=== PATIENT | female | born 1950 | race Caucasian/White ===

== ENCOUNTER 2021-06-01 08:35 | Day surgery (SDC) | payer MEDICARE, MEDICAID ==
[~2021-06-01] VITALS: Ht 165.1 cm; Wt 86.9 kg
[2021-06-01 08:52] VITALS: BP 143/100
[2021-06-01] MEDS ORDERED: cefazolin/dext.iso 2gm/50ml 50 ML IV ONE (09:10)
[2021-06-01] MEDS ORDERED: normal saline 1000ml 1,000 ML IV PRN (09:10)
[2021-06-01 09:30] LABS: BASOPHILS % (AUTO) 0.7 % (0-1); EOSINOPHILS # (AUTO) 0.1 X10'3 (0-0.9); EOSINOPHILS % (AUTO) 2.4 % (0-6); HEMATOCRIT 35.1 % (35.0-45.0); HEMOGLOBIN 11.8 g/dl (12.0-16.0); LYMPHOCYTES # (AUTO) 1.8 X10'3 (1.1-4.8); LYMPHOCYTES % (AUTO) 30.2 % (21-51); MEAN CORPUSCULAR HEMOGLOBIN 33.4 PG (27.0-31.0); MEAN CORPUSCULAR HGB CONC 33.7 g/dL (33.0-36.5); MEAN CORPUSCULAR VOLUME 99.3 FL (78-98); MEAN PLATELET VOLUME 9.2 FL (7.4-10.4); MONOCYTES # (AUTO) 0.8 X10'3 (0-0.9); MONOCYTES % (AUTO) 13.4 % (2-12); NEUTROPHILS # (AUTO) 3.2 X10'3 (1.8-7.7); NEUTROPHILS % (AUTO) 53.3 % (42-75); PLATELET COUNT 110 X10'3 (140-440); RED BLOOD COUNT 3.53 X10'6 (4.20-5.60); RED CELL DISTRIBUTION WIDTH 17.4 % (11.5-14.5); WHITE BLOOD COUNT 6.1 X10'3 (4.5-11.0)
[2021-06-01] MEDS ORDERED: WARF-65 PO (09:36)
[2021-06-01] MEDS ORDERED: warfarin PO (09:37)
[2021-06-01] MEDS ORDERED: triamterene-hctz PO (09:39)
[2021-06-01] MEDS ORDERED: METO50TA17 PO (09:46)
[2021-06-01] MEDS ORDERED: Omeprazole PO (09:48)
[2021-06-01] MEDS ORDERED: ONDA8TAB13 PO (09:49)
[2021-06-01] MEDS ORDERED: PROC-8 PO (09:50)
[2021-06-01] MEDS ORDERED: LENA15CA PO (09:52)
[2021-06-01] MEDS ORDERED: DEXA4TAB PO (09:54)
[2021-06-01] MEDS ORDERED: ACYC-1 PO (09:55)
[2021-06-01] MEDS ORDERED: Calcium Carbonate PO (09:57)
[2021-06-01] MEDS ORDERED: OMEG-79 PO (09:58)
[2021-06-01] MEDS ORDERED: midazolam 1 mg/ML 2ml injection ONE (10:02)
[2021-06-01] MEDS ORDERED: LIDOcaine 1%/PF 5ML 10 MG/ML VIAL ONE (10:02)
[2021-06-01] MEDS ORDERED: diphenhydrAMINE 50 mg/ml inj ONE (10:02)
[2021-06-01] MEDS ORDERED: fentaNYL/PF 50MCG/1 ML 2ML syringe ONE (10:03)
[2021-06-01] MEDS ORDERED: iohexol 300 MG/1 ML 50ml polymer ONE (10:03)
[2021-06-01 11:29] VITALS: BP 119/80
[2021-06-01 11:44] VITALS: BP 116/73
[2021-06-01 11:58] VITALS: BP 118/73
[2021-06-01 12:14] VITALS: BP 121/71
[2021-06-01 12:43] VITALS: BP 122/86
== END 2021-06-01 13:25 | disposition home or self-care (01) ==
LOC: SSTAY O 08:35
PROVIDERS: ATTEND Radiology Vascular & Interventional Radiology
DX: M80.08XA Age-related osteoporosis with current pathological fracture, vertebra(e), initial encounter for fracture (principal); M54.6 Pain in thoracic spine; C90.00 Multiple myeloma not having achieved remission; I10 Essential (primary) hypertension; Z98.890 Other specified postprocedural states; Z20.822 Contact with and (suspected) exposure to COVID-19; Z79.899 Other long term (current) drug therapy
CPT/HCPCS: 22513; 36415; 85025; 85610; 87635; 99152; 99153; C1713; C9803; J1200; J2250; J3010; Q9967